=== PATIENT | female | born 1935 | race Caucasian/White ===

== ENCOUNTER → 2016-08-28 | Outpatient (CLI) | payer OTHER ==
--- NOTE | 2016-08-29 10:09 | MAM ---
EXAM DESCRIPTION: MAMMO BREAST SCREENING BILATERAL CAD, images were reviewed with CAD technology, R2 computer-aided detection. CLINICAL HISTORY: [facility]. COMPARISON: 2014. FINDINGS: Routine views are obtained. Scattered glandular pattern with stable distribution. No dominant mass, architectural distortion or clustered microcalcification. IMPRESSION: Benign exam. BIRAD CATEGORY: 2 BENIGN RECOMMENDATIONS: FOLLOW-UP: Routine screening mammogram in one year. According to the [employer], yearly mammograms are recommended starting at age 40 and continuing as long as a woman is in good health. Any breast change noted on a breast self-exam should be reported promptly to the patient's healthcare provider. Breast MRI is recommended for women with an approximately 20-25% or greater lifetime risk of breast cancer, including women with a strong family history of breast or ovarian cancer and women who have been treated for Hodgkin's disease. Electronically signed by: Anuradha Ellis 08/29/2016 10:07
== END ==
LOC: MAMMO 14:35
PROVIDERS: ATTEND Family Medicine
DX: Z12.31 Encounter for screening mammogram for malignant neoplasm of breast (principal)

== ENCOUNTER → 2016-09-28 | Outpatient (CLI) | payer OTHER | LOC: RESP 12:40 | PROVIDERS: ATTEND Physician Assistant | DX: R00.1 Bradycardia, unspecified (principal) ==

== ENCOUNTER → 2017-05-16 | Outpatient (CLI) | payer OTHER | END | disposition home or self-care (01) | LOC: GMAH 10:15 | PROVIDERS: ATTEND Family Medicine | DX: E03.9 Hypothyroidism, unspecified (principal); E78.2 Mixed hyperlipidemia ==

== ENCOUNTER → 2017-08-30 | Outpatient (CLI) | payer OTHER ==
--- NOTE | 2017-09-07 08:55 | MAM ---
EXAM DESCRIPTION: 3D Screening BILATERAL : Digital Mammography. CLINICAL HISTORY: 82 years Female SCREENING . Bilateral breast reduction. Sister with breast cancer. Postmenopausal. Taking HRT 5 or more years ago. COMPARISON: 2-D digital screening bilateral studies 08/28/2016 and 08/26/2015.. Report from prior examination also reviewed. TECHNIQUE: Bilateral CC and MLO projection full-field images, 3-D tomosynthesis digital mammographic technique. Also bilateral synthesized CC/ MLO full-field images. CAD not utilized. Technique Limited due to positioning: Patient unable to stand. FINDINGS: The breast parenchymal density pattern is: Almost entirely fatty. No skin thickening or nipple retraction bilateral axillary lymph nodes. Bilateral vascular calcifications. Bilateral solitary microcalcifications. No focal, stellate mass or density, focal asymmetry , and no suspicious microcalcifications bilaterally. Stable mammograms compared to prior study, taking into account differences in mammographic technique IMPRESSION: BI-RADS CATEGORY: 2 - BENIGN FINDINGS. FOLLOW UP: Routine digital bilateral screening, one year interval from August 2017. Written communication explaining the IMPRESSION and follow-up, will be mailed to the patient and referring health care provider. According to the [employer], yearly mammograms are recommended starting at age 40 and continuing as long as a woman is in good health. Any breast change noted on a breast self-exam should be reported promptly to the patient's healthcare provider. Breast MRI is recommended for women with an approximately 20-25% or greater lifetime risk of breast cancer, including women with a strong family history of breast or ovarian cancer and women who have been treated for Hodgkin's disease. A negative mammographic report should not delay tissue diagnosis in patients with significant clinical history or physical findings. Extremely dense breast tissue limits the sensitivity of digital mammography. Electronically signed by: Edmundo Crystal MD 09/07/2017 8:54 AM TOOTH CLERK
== END ==
LOC: MAMMO 15:23
PROVIDERS: ATTEND Family Medicine
DX: Z12.31 Encounter for screening mammogram for malignant neoplasm of breast (principal)

== ENCOUNTER → 2018-06-06 | Outpatient (CLI) | payer OTHER | LOC: GMAH 10:46 | PROVIDERS: ATTEND Family Medicine | DX: I10 Essential (primary) hypertension (principal); E78.2 Mixed hyperlipidemia ==

== ENCOUNTER → 2019-03-11 | Outpatient (CLI) | payer OTHER | LOC: GMA MATASK 10:33 | PROVIDERS: ATTEND Family Medicine | DX: E03.9 Hypothyroidism, unspecified (principal); I10 Essential (primary) hypertension ==

== ENCOUNTER → 2020-01-13 | Outpatient (CLI) | payer OTHER | LOC: GMA MATASK 10:27 | PROVIDERS: ATTEND Family Medicine | DX: E03.9 Hypothyroidism, unspecified (principal); I10 Essential (primary) hypertension; E11.9 Type 2 diabetes mellitus without complications ==

== ENCOUNTER → 2020-05-18 | Outpatient (CLI) | payer OTHER | LOC: GMA MATASK 14:35 | PROVIDERS: ATTEND Family Medicine | DX: E03.9 Hypothyroidism, unspecified (principal); E11.9 Type 2 diabetes mellitus without complications ==

== ENCOUNTER 2020-08-04 11:33 | Inpatient (IN) | payer MEDICARE, OTHER ==
[2020-08-04] MEDS ORDERED: SOD POLYSTYRENE SULFONATE 15 GM/60 ML BTTL PO ONE (12:34)
[2020-08-04] MEDS ORDERED: SODIUM CHLORIDE 0.9% 1000ML 1,000 ML IVS ONE ×2 (12:34→13:45)
--- NOTE | 2020-08-04 13:12 | RAD ---
EXAM DESCRIPTION: Abdomen series, 3 radiographs CLINICAL HISTORY: nausea, cough, weak FINDINGS/ IMPRESSION: Prior cardiac surgery. Normal heart size. Atherosclerotic aorta. No edema, infiltrate or effusion. No pneumothorax. Normal bowel gas pattern. No evidence of mechanical bowel obstruction. 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 Lumbar spine fusion surgery Electronically signed by: Nelson Vizcaino MD 08/04/2020 1:10 PM HEALTH DIRECTOR
--- NOTE | 2020-08-04 13:18 | CT ---
EXAM DESCRIPTION: CT abdomen and pelvis without contrast CLINICAL HISTORY: Acute renal failure. Abdomen pain. COMPARISON: None Available. TECHNIQUE: Spiral CT with multiplanar reformatted images. This exam was performed according to our departmental dose-optimization program, which includes automated exposure control, adjustment of the mA and/or kV according to patient size and/or use of iterative reconstruction technique. FINDINGS: No hydronephrosis, nephrolithiasis or renal mass lesion. Kidneys are normal in size. Mild perinephric soft tissue density stranding which can be seen with renal insufficiency. No diagnostic abnormality of the ureters or bladder Normal appearance of the uterus. 3.9 cm well-circumscribed right ovarian cyst. No diagnostic left ovarian mass lesion. No adenopathy or free fluid in the pelvis Colonic diverticulosis, primarily sigmoid. No diverticulitis. Mural fat in the cecum and ascending colon likely sequela of remote inflammation. No acute wall thickening/inflammation. Terminal ileum and appendix are normal. No mass lesion or inflammatory process of the small intestine. Normal appearance of the stomach. Thickened distal esophagus over a short segment possibly esophagitis. Visualized lung bases are clear. Heart size is normal Atherosclerotic aorta without aneurysm. No abdominal visceral mass lesion to suggest neoplasm. Normal appearance of the gallbladder. No biliary or pancreatic duct dilation Severe osteoporosis arthritis bilateral hips right greater than left. Lumbar spine fusion surgery IMPRESSION: No acute abnormality of the kidneys ureters or bladder Right ovarian cystic lesion 3.9 cm. Recommend ultrasound follow-up/characterization Colonic diverticulosis without evidence of diverticulitis Fat within the wall of the cecum/ascending colon likely remote postinflammatory. No diagnostic acute inflammation Electronically signed by: Nelson Vizcaino MD 08/04/2020 1:17 PM BOX CAR BRACER
--- NOTE | 2020-08-04 13:49 | ED.PDOC ---
History of Present Illness - General Chief Complaint: General Stated Complaint: weakness,dry mouth,sore throat,cough Time Seen by Provider: 08/04/20 11:36 Source: patient Exam Limitations: no limitations - History of Present Illness Initial Comments: The patient is an 85-year-old female presented to the emergency room secondary to 1 to 2 weeks of symptoms of generalized fatigue and generalized weakness. She has had a mild runny nose. She has had a mild cough. She reports significant dry mouth which has been giving her a difficult time with swallowing. She is able to swallow liquids without any difficulty. Mild generalized unsteadiness of gait. No syncope or near syncope. No significant falls. She has had some mild diffuse low back discomfort. No fevers. No vomiting. Questionable mild nausea. Poor appetite. Mild bladder irritability but she does take oxybutynin. Timing/Duration: 1 week, constant, getting worse Severity: moderate Improving Factors: nothing Worsening Factors: nothing Associated Symptoms: loss of appetite, malaise, nausea/vomiting, weakness Allergies/Adverse Reactions: Allergies Iodine Allergy (Unknown, Verified 08/04/20 11:57) Home Medications: Ambulatory Orders Aspirin [Aspirin 81 Low Dose] 81 mg PO DAILY 08/04/20 Atorvastatin Calcium [Lipitor] 20 mg PO DAILY 08/04/20 B-Complex W/ Folic Acid [Super B Complex Maxi] 1 tab PO DAILY 08/04/20 Benazepril & Hydrochlorothiazi [Benazepril HCl/Hydrochlor 10-12.5 mg] 1 tab PO DAILY 08/04/20 Celecoxib 200 mg PO DAILY 08/04/20 Cholecalciferol [D3 High Potency] 5,000 unit PO DAILY 08/04/20 Donepezil Hydrochloride [Donepezil HCl] 10 mg PO DAILY 08/04/20 Febuxostat 40 mg PO DAILY 08/04/20 Furosemide Tab [Lasix Tab] 40 mg PO DAILY 08/04/20 Ibandronate Sodium 150 mg PO MONTHLY 08/04/20 Lansoprazole [Prevacid] 30 mg PO DAILY 08/04/20 Levothyroxine Sodium [Synthroid] 0.088 mg PO 0700 08/04/20 Meloxicam 7.5 mg PO DAILY 08/04/20 Multiple Vitamins W/ Minerals [Ocuvite Eye + Multi] 1 tab PO DAILY 08/04/20 Oxybutynin Chloride 5 mg PO BID 08/04/20 Potassium Chloride [Potassium Chloride ER] 10 meq PO DAILY 08/04/20 Review of Systems - Review of Systems Constitutional: States: malaise, weakness - Generalized EENTM: States: nose congestion Respiratory: States: cough - Mild Cardiology: States: no symptoms reported Gastrointestinal/Abdominal: States: constipation, nausea Genitourinary: States: see HPI Musculoskeletal: States: back pain Skin: States: no symptoms reported Neurological: States: no symptoms reported Endocrine: States: increased thirst All other Systems: No Change from Baseline Past Medical History (General) - Patient Medical History Hx Stroke: No Hx Asthma: Yes Hx Cardiac Disorders: Yes Hx Congestive Heart Failure: No Hx Diabetes: No Hx Gastroesophageal Reflux: Yes Surgical History: coronary bypass surgery - Vaccination History Hx Influenza Vaccination: Yes Hx Pneumococcal Vaccination: Yes - Social History Hx Tobacco Use: No Family Medical History - Family History Mother Family History: Unknown Living Status: Unknown Physical Exam - Physical Exam General Appearance: Alert, No apparent distress Eye Exam: bilateral normal Ears, Nose, Throat: hearing grossly normal, normal pharynx - Oropharynx is fairly dry. Neck: full range of motion, supple Respiratory: lungs clear, normal breath sounds, no respiratory distress, no accessory muscle use Cardiovascular/Chest: normal peripheral pulses, regular rate, rhythm, no edema Peripheral Pulses: radial,right: 2+, radial,left: 2+ Gastrointestinal/Abdominal: non tender, soft Rectal Exam: deferred Back Exam: no CVA tenderness, no vertebral tenderness Extremity: non-tender, normal inspection, no pedal edema, normal capillary refill Neurologic: telephone order dispatcher II-XII nml as tested, alert, normal mood/affect, oriented x 3 Skin Exam: normal color Comments: Vital Signs - 24 hr 08/04/20 08/04/20 08/04/20 11:58 12:06 12:35 Temperature 98.1 F Pulse Rate [ 70 73 Left Brachial] Respiratory 18 18 18 Rate Blood Pressure 129/58 158/45 [Left Arm] O2 Sat by Pulse 97 98 Oximetry 08/04/20 13:00 Temperature Pulse Rate [ 56 L Left Brachial] Respiratory 18 Rate Blood Pressure 139/42 [Left Arm] O2 Sat by Pulse 98 Oximetry Progress - Progress Progress: 08/04/20 13:51 The patient is a 85-year-old female presented emergency room secondary to a vague constellation of symptoms. This appears to be due to acute renal failure that is most likely due to dehydration, prerenal azotemia. The patient does take several diuretics. Additionally likely complicating the issue, the patient has been taking increasing doses of NSAIDs for the month or so prior. The patient's oxybutynin may have also been contributing to some extent however the bladder was decompressed after voiding here today. It may still need to be avoided in the short-term. The patient has received a liter of IV fluids as well as a one-time oral dose of Kayexalate for moderate hyperkalemia at 6.1. I do expect the potassium level to fall simply with rehydration. The patient does apparently have a history of congestive heart failure so we will have to go fairly slow with the rehydration process. She is going to be placed on 150 cc an hour of normal saline for the next liter. She will need reassessing after that. Vital signs are stable and the patient is alert and oriented x4. The patient will need to be on telemetry monitoring for now. The patient thinks she may have some history of some mild kidney problems in the past but is not certain. We do not have a previous creatinine to compare to. She has tested negative for coronavirus. Imaging and lab work are otherwise reassuring. Admit for continued care. armand smith [id number] - Results/Orders Results/Orders: Acute abdominal series shows chronic changes related to surgeries. CT scan of the abdomen pelvis without contrast shows no obvious acute renal pathology. She has a 4 cm ovarian cyst. Chronic changes otherwise. See report for details. Rapid Covid is negative. EKG shows sinus bradycardia at 54 bpm with a mild first-degree AV block. Normal axis. Normal R wave progression. Normal QT interval. No ST segment or T wave changes indicative of acute ischemia. Laboratory Tests 08/04/20 08/04/20 08/04/20 12:01 12:01 12:01 WBC 6.2 RBC 3.62 L Hgb 11.1 L Hct 34.3 L MCV 94.7 MCH 30.5 MCHC 32.2 L RDW 13.8 Plt Count 193 MPV 10.6 H Absolute Neuts (auto) 3.70 Absolute Lymphs (auto) 1.70 Absolute Monos (auto) 0.40 Absolute Eos (auto) 0.30 Absolute Basos (auto) 0.10 Neutrophils % 60.4 Lymphocytes % 27.2 Monocytes % 6.8 Eosinophils % 4.2 Basophils % 1.4 Sodium 132 L Potassium 6.1 H Chloride 103 Carbon Dioxide 15 L Anion Gap 20.1 H BUN 111 H* Creatinine 8.48 H* BUN/Creatinine Ratio 13.1 Random Glucose 126 H Serum Osmolality Not Reportable Calcium 9.3 Magnesium 2.1 Total Bilirubin 0.6 AST 16 ALT 12 Alkaline Phosphatase 43 Creatine Kinase 80 CK-MB (CK-2) 3.2 CK-MB (CK-2) % Not Reportable Troponin I < 0.02 B-Natriuretic Peptide 215.0 H* Serum Total Protein 6.9 Albumin 4.2 Globulin 2.7 Albumin/Globulin Ratio 1.6 Amylase 70 Lipase 72 H TSH 2.32 Free T4 0.83 Urine Color Urine Appearance Urine pH Ur Specific [place] Urine Protein Urine Glucose (UA) Urine Ketones Urine Blood Urine Nitrite Urine Bilirubin Urine Urobilinogen Ur Leukocyte Esterase Urine RBC Urine WBC Ur Epithelial Cells Amorphous Sediment Urine Bacteria 08/04/20 12:30 WBC RBC Hgb Hct MCV MCH MCHC RDW Plt Count MPV Absolute Neuts (auto) Absolute Lymphs (auto) Absolute Monos (auto) Absolute Eos (auto) Absolute Basos (auto) Neutrophils % Lymphocytes % Monocytes % Eosinophils % Basophils % Sodium Potassium Chloride Carbon Dioxide Anion Gap BUN Creatinine BUN/Creatinine Ratio Random Glucose Serum Osmolality Calcium Magnesium Total Bilirubin AST ALT Alkaline Phosphatase Creatine Kinase CK-MB (CK-2) CK-MB (CK-2) % Troponin I B-Natriuretic Peptide Serum Total Protein Albumin Globulin Albumin/Globulin Ratio Amylase Lipase TSH Free T4 Urine Color Yellow Urine Appearance Cloudy Urine pH 5.0 Ur Specific [place] 1.020 Urine Protein Negative Urine Glucose (UA) Negative Urine Ketones Negative Urine Blood Negative Urine Nitrite Negative Urine Bilirubin Negative Urine Urobilinogen 0.2 Ur Leukocyte Esterase Negative Urine RBC 0-1 Urine WBC 3-5 H Ur Epithelial Cells 10-20 Amorphous Sediment 2+ Urine Bacteria 1+ Departure - Departure Clinical Impression: Hyperkalemia Acute renal failure Qualifiers: Acute renal failure type: unspecified Qualified Code(s): N17.9 - Acute kidney failure, unspecified Disposition: Admit Patient Departure Forms: ED Discharge - Pt. Copy, Patient Portal Self Enrollment Referrals: Rosales Woodward MD [Primary Care Provider] - 1-2 Weeks Home Medications: Ambulatory Orders Aspirin [Aspirin 81 Low Dose] 81 mg PO DAILY 08/04/20 Atorvastatin Calcium [Lipitor] 20 mg PO DAILY 08/04/20 B-Complex W/ Folic Acid [Super B Complex Maxi] 1 tab PO DAILY 08/04/20 Benazepril & Hydrochlorothiazi [Benazepril HCl/Hydrochlor 10-12.5 mg] 1 tab PO DAILY 08/04/20 Celecoxib 200 mg PO DAILY 08/04/20 Cholecalciferol [D3 High Potency] 5,000 unit PO DAILY 08/04/20 Donepezil Hydrochloride [Donepezil HCl] 10 mg PO DAILY 08/04/20 Febuxostat 40 mg PO DAILY 08/04/20 Furosemide Tab [Lasix Tab] 40 mg PO DAILY 08/04/20 Ibandronate Sodium 150 mg PO MONTHLY 08/04/20 Lansoprazole [Prevacid] 30 mg PO DAILY 08/04/20 Levothyroxine Sodium [Synthroid] 0.088 mg PO 0700 08/04/20 Meloxicam 7.5 mg PO DAILY 08/04/20 Multiple Vitamins W/ Minerals [Ocuvite Eye + Multi] 1 tab PO DAILY 08/04/20 Oxybutynin Chloride 5 mg PO BID 08/04/20 Potassium Chloride [Potassium Chloride ER] 10 meq PO DAILY 08/04/20 Decision To Admit - Decistion To Admit Decision to Admit Reason: Medical Nature Decision to Admit Date: 08/04/20 Decision to Admit Time: 13:54
--- NOTE | 2020-08-04 14:26 | HP ---
SUPERVISING PHYSICIAN: Adalid Swann MD CHIEF COMPLAINT: Weakness with dry mouth. HISTORY OF PRESENT ILLNESS: This is an 85-year-old female patient who came to the Emergency Room after complaining of 2 weeks of generalized fatigue and weakness. She had a significantly dry mouth and has had difficulty swallowing. She was able to swallow liquids, but she was somewhat unsteady on her gait. She does have a significant history of osteoarthritis and takes multiple NSAIDs. She also has gout. She does take 2 diuretics, but there is no note of any congestive heart failure on her chart. In the Emergency Room, her vital signs were stable with temperature 98.1, heart rate 70, blood pressure 129/68, respiratory rate 18, O2 saturation 97% on room air. Labs showed CBC that was unremarkable. Sodium was low at 132, potassium 6.1, chloride 103, carbon dioxide 15, anion gap 20.1, BUN 111, creatinine 8.48, glucose 126. Troponin less than 0.02. BNP was 215. Lipase 72, TSH 2.32. She was given fluids in the ER as well as some Kayexalate and was admitted to the hospital. PAST MEDICAL HISTORY: 1. Diabetes mellitus, type 2, diet controlled. 2. Hypertension. 3. Gout. 4. Hypothyroidism. 5. Osteoarthritis. PAST SURGICAL HISTORY: 1. Valve replacement with CABG. 2. Spinal surgery. OUTPATIENT MEDICATIONS: Per the EMR and awaiting verification. ALLERGIES: IODINE. FAMILY HISTORY: Positive for coronary artery disease. SOCIAL HISTORY: She lives in [place]. There is no history of tobacco, ETOH or illicit drug use. REVIEW OF SYSTEMS: GENERAL: Positive for fatigue and weakness. Negative for fever or weight changes. HEENT: Positive for runny nose and dry mouth. Negative for ear pain, vision changes or sore throat. RESPIRATORY: Positive for cough. Negative for wheezing or shortness of breath. CARDIAC: Negative for chest pain, palpitations or tachycardia. GASTROINTESTINAL: Positive for constipation and nausea. Negative for vomiting or diarrhea. GENITOURINARY: Negative for hematuria, dysuria or polyuria. MUSCULOSKELETAL: Positive for back pain and arthralgias. SKIN: Negative for lesions or rashes. NEUROLOGIC: Positive for weakness. Negative for headaches seizures. PHYSICAL EXAMINATION: VITAL SIGNS: Temperature 97.1, heart rate 67, blood pressure 135/64, respiratory rate 18, O2 saturation 98% on room air. GENERAL: This is an 85-year-old female patient who is lying in her hospital bed. She is in no acute distress. HEENT: Normocephalic, atraumatic. Pupils are equal and reactive. Oropharynx is dry. NECK: Supple. RESPIRATORY: Essentially clear to auscultation bilaterally. CARDIOVASCULAR: Regular rate and rhythm. GASTROINTESTINAL: Abdomen is soft, nondistended, nontender. Bowel sounds are positive. EXTREMITIES: No cyanosis, clubbing or edema. NEUROLOGIC: Awake, alert and oriented times three. Cranial nerves II-XII are grossly intact as tested. LABORATORY: Labs are as per history of present illness. MICROBIOLOGY: COVID test was negative. RADIOLOGY: Abdominal/pelvis CT shows 1) No acute abnormality of kidneys, ureters or bladder. 2) Right ovarian cyst lesion 3.9 cm, recommend ultrasound. 3) Colonic diverticulosis without evidence of diverticula. 4) Fat within the wall of the cecum, ascending colon, likely remote and post inflammatory. No diagnostic acute inflammation. Abdomen x-rays shows prior cardiac surgery. No edema, infiltrate or effusion. No pneumothorax. Normal bowel gas pattern. No evidence of mechanical bowel obstruction. Severe arthrosis of bilateral hips, right greater than left. Lumbar spine fusion surgery. IMPRESSION: 1. Acute on chronic renal failure. Her admitting creatinine was 8.48. Her baseline creatinine is about 1.4. 2. Severe dehydration exacerbating #1. She is on 2 diuretics. 3. Hyperkalemia. 4. Hypertension. 5. Gout. 6. Osteoarthritis. 7. Diabetes mellitus, type 2, diet controlled. 8. Hypothyroidism. PLAN: We will admit the patient to the hospital. I will give her bicarb drip and talk to Dr. Carter in the morning. I will recheck her electrolytes later tonight as well as in the morning. I will give her heparin for DVT prophylaxis due to her renal function. We will hold her NSAIDs and most likely she will have to have another pain medicine for her osteoarthritis. I will also hold her diuretics for now. I have ordered an echocardiogram as she did have an elevated BNP and there is no record of congestive heart failure. I may also order a sonogram of the cyst on her ovary tomorrow or the next day or she can followup with her primary care physician. We will monitor and treat as needed. #[id number] [facility]
[2020-08-04] MEDS ORDERED: ONDANSETRON INJ 4 MG/2 ML VIAL IV PRN (17:20)
[2020-08-04] MEDS ORDERED: PROMETHAZINE HCL INJ 25 MG/ML VIAL IM PRN (17:20)
[2020-08-04] MEDS ORDERED: SODIUM CHLORIDE 0.9% (FLUSH) 10 ML SYG IV PRN (19:00)
[2020-08-04] MEDS ORDERED: SODIUM BICARBONATE VIAL 50 MEQ/50 ML VIAL ONE (19:30)
[2020-08-04] MEDS ORDERED: DONEPEZIL HCL 5 MG TAB ONE (19:30)
[2020-08-04] MEDS ORDERED: DEXTROSE 5% 1000ML 1,000 ML IVS ONE (19:31)
[2020-08-04] MEDS: IV SET AND CAP CHANGE INJ INJ SCH (19:47)
[2020-08-04] MEDS: SODIUM BICARBONATE VIAL 75 MEQ in DEXTROSE 5% 1000ML 1,000 ML IVS PRN (19:47)
[2020-08-04] MEDS: HEPARIN SODIUM (PORCINE) 5,000 U/ML VIAL SUBCU SCH (20:35)
[2020-08-04] MEDS: ATORVASTATIN 20 MG TAB PO SCH (20:35)
[2020-08-04] MEDS: SODIUM CHLORIDE 0.9% (FLUSH) 10 ML SYG IV SCH (20:36)
[2020-08-04] MEDS ORDERED: NON-FORMULARY MEDICATION 1 EA MIS (Donepezil Hydrochloride [Donepezil Hcl] 10 MG) PO SCH (21:00)
[2020-08-05] MEDS ORDERED: SODIUM BICARBONATE VIAL 50 MEQ/50 ML VIAL ONE (05:52)
[2020-08-05] MEDS ORDERED: DEXTROSE 5% 1000ML 1,000 ML IVS ONE (05:52)
[2020-08-05] MEDS: SODIUM BICARBONATE VIAL 75 MEQ in DEXTROSE 5% 1000ML 1,000 ML IVS PRN ×2 (06:00→17:18)
[2020-08-05] MEDS: LEVOTHYROXINE SODIUM 0.088 MG TAB PO SCH (06:01)
[2020-08-05] MEDS: PANTOPRAZOLE SODIUM IV 40 MG VIAL IV SCH (06:01)
[2020-08-05] MEDS ORDERED: FOLIC ACID 1 MG TAB ONE (08:42)
[2020-08-05] MEDS ORDERED: traMADol HCL 50 MG TAB PO PRN (09:19)
[2020-08-05] MEDS: HEPARIN SODIUM (PORCINE) 5,000 U/ML VIAL SUBCU SCH ×2 (09:59→20:49)
[2020-08-05] MEDS: SODIUM CHLORIDE 0.9% (FLUSH) 10 ML SYG IV SCH ×2 (09:59→21:51)
--- NOTE | 2020-08-05 14:40 | PN ---
SUPERVISING PHYSICIAN: Adalid Swann MD DATE: 08/05/20 SUBJECTIVE: The patient is sitting up in bed. We discussed her progress since she has been admitted. I explained to her that she would have to stop her NSAIDs, but that she had pain medications as needed. She will also need to see Nephrology at discharge. She denies chest pain, nausea or vomiting. OBJECTIVE: VITAL SIGNS: Temperature 98.1, heart rate 81, blood pressure 148/75, respiratory rate 17, O2 saturation 98% on room air. RESPIRATORY: Essentially clear to auscultation bilaterally. CARDIAC: Regular rate and rhythm. NEUROLOGIC: She is awake and alert. LABORATORY: WBCs 6,700, hemoglobin 9.2, hematocrit 28.2. Potassium last night was 5.7 with BUN 105, creatinine 7.8. This morning, her sodium was 134, potassium 4.5, carbon dioxide 20, BUN 101, creatinine 7.65, serum osmolality 302.4, calcium 8.3, phosphorous 5.4, magnesium 2.All other labs and films have been reviewed via the EMR. ECHOCARDIOGRAM: 1. There is mild concentric left ventricle hypertrophy. 2. Left ventricular ejection fraction estimated by 2D at 55-60 percent. 3. Mild left atrial enlargement. 4. The bio prosthetic aortic valve appears to be functioning normally. ASSESSMENT: 1. Acute on chronic renal failure. Her admitting creatinine was 8.48. Her baseline creatinine is about 1.4. 2. Severe dehydration exacerbating #1. She is on 2 diuretics. 3. Hyperkalemia. 4. Hypertension. 5. Gout. 6. Osteoarthritis. 7. Diabetes mellitus, type 2, diet controlled. 8. Hypothyroidism. PLAN: We will continue present supportive care. I spoke with Dr. Carter, special education science teacher, this morning and he said to continue on the bicarb drip and to repeat her labs in the morning. We will need to discontinue her NSAIDs and I have given her some Tylenol with codeine for pain. I discussed her pain medications with her primary care physician, Dr. Woodward, and he agreed with placing her on Tylenol with codeine at this time. She will also need a followup appointment with Dr. Carter after discharge. [id number] [facility]
[2020-08-05] MEDS: ONDANSETRON INJ 4 MG/2 ML VIAL IV PRN (17:24)
[2020-08-05] MEDS ORDERED: DONEPEZIL HCL 5 MG TAB ONE (19:16)
[2020-08-05] MEDS: DONEPEZIL HCL 5 MG TAB PO SCH (20:49)
[2020-08-05] MEDS: ATORVASTATIN 20 MG TAB PO SCH (20:49)
[2020-08-05] MEDS: ACETAMINOPHEN W/COD #3 TAB 1 EA TAB PO PRN (20:49)
[2020-08-06] MEDS: LEVOTHYROXINE SODIUM 0.088 MG TAB PO SCH (05:58)
[2020-08-06] MEDS: PANTOPRAZOLE SODIUM IV 40 MG VIAL IV SCH (05:58)
--- NOTE | 2020-08-06 07:44 | RAD ---
EXAM DESCRIPTION: Chest,2 Views CLINICAL HISTORY: chf COMPARISON: January 13, 2020 FINDINGS: Two-view chest x-ray shows mild enlargement of the cardiac silhouette without pulmonary vascular congestion. Postsurgical changes from cardiac valve replacement. Lungs are normally aerated with chronic increased interstitial markings. No acute infiltrate or consolidation. . Mild blunting of the posterior costophrenic angles. Moderate disc degenerative changes of the spine with bridging marginal endplate osteophytes over multiple level suggesting ankylosing spondylitis versus DISH. IMPRESSION: No radiographic evidence of acute cardiopulmonary disease. Chronic stable blunting of the posterior costophrenic angles could represent small pleural effusions or chronic pleural thickening. Electronically signed by: Hitesh Orosco MD 08/06/2020 7:43 AM AP PROCESSOR
[2020-08-06] MEDS ORDERED: MAGNESIUM SULFATE PREMIX 2GM 2 GM in PREMIX BAG 1 BAG IVPB ONE (07:47)
[2020-08-06] MEDS ORDERED: MAGNESIUM SULFATE PREMIX 2GM 50 ML IVPB ONE (08:48)
[2020-08-06] MEDS: SODIUM CHLORIDE 0.9% (FLUSH) 10 ML SYG IV SCH ×2 (09:15→22:29)
[2020-08-06] MEDS: HEPARIN SODIUM (PORCINE) 5,000 U/ML VIAL SUBCU SCH ×2 (09:35→19:54)
[2020-08-06] MEDS: SODIUM BICARBONATE VIAL 75 MEQ in DEXTROSE 5% 1000ML 1,000 ML IVS PRN ×2 (10:52→19:57)
[2020-08-06] MEDS: ONDANSETRON INJ 4 MG/2 ML VIAL IV PRN ×2 (10:52→19:54)
[2020-08-06] MEDS: FEBUXOSTAT 40 MG PO SCH (11:01)
--- NOTE | 2020-08-06 19:05 | PN ---
SUPERVISING PHYSICIAN: Adalid Swann M.D. DATE: 08/06/20 SUBJECTIVE: The patient is sitting up in bed conversing on the phone. She denies any chest pain, nausea or vomiting. We discussed her continued plan of care and that her kidney function had improved but we with have to continue present care for a day or so. OBJECTIVE: VITAL SIGNS: Temperature 97.8, heart rate 57, blood pressure 131/75, respiratory rate 17, O2 saturation 96% on room air. RESPIRATORY: Essentially clear to auscultation bilaterally. CARDIAC: Regular rate and rhythm. NEUROLOGIC: She is awake, alert and oriented times three. LABORATORY: WBCs are 5,400 with hemoglobin 9.5, hematocrit 28.3. Sodium 134, potassium 4.1, chloride 99, BUN 86, creatinine 5.77, serum osmolality 297.3, phosphorus 5, magnesium 1.7. Chest x-ray shows no radiographic evidence of acute cardiopulmonary disease. Chronic stable blunting of the posterior costophrenic angles could represent small pleural effusion or chronic pleural thickening. All other labs and films have been reviewed via the EMR. ASSESSMENT: 1. Acute on chronic renal failure. Her admitting creatinine was 8.48. Her baseline creatinine is about 1.4. 2. Severe dehydration exacerbating #1. She is on 2 diuretics. 3. Hyperkalemia. 4. Hypertension. 5. Gout. 6. Osteoarthritis. 7. Diabetes mellitus, type 2, diet controlled. 8. Hypothyroidism. PLAN: We will continue present supportive care. She will continue on her Bicarb drip, although I have reduced the rate for now. She has received some magnesium supplementation. I will check her labs in the morning. I may want to add her a small amount of Lasix back tomorrow, but will need to make sure she is stays off her NSAIDs for now. She has agreed to [facility] on discharge. Will monitor closely and follow as needed. #[id number] [facility]
[2020-08-06] MEDS: ATORVASTATIN 20 MG TAB PO SCH (19:53)
[2020-08-06] MEDS: DONEPEZIL HCL 5 MG TAB PO SCH (19:54)
[2020-08-07] MEDS: LEVOTHYROXINE SODIUM 0.088 MG TAB PO SCH (05:35)
[2020-08-07] MEDS: PANTOPRAZOLE SODIUM IV 40 MG VIAL IV SCH (05:35)
[2020-08-07] MEDS ORDERED: FUROSEMIDE 40 MG TAB PO SCH (09:00)
[2020-08-07] MEDS: HEPARIN SODIUM (PORCINE) 5,000 U/ML VIAL SUBCU SCH ×2 (10:19→20:31)
[2020-08-07] MEDS: FEBUXOSTAT 40 MG PO SCH (10:20)
[2020-08-07] MEDS: SODIUM CHLORIDE 0.9% (FLUSH) 10 ML SYG IV SCH ×2 (10:20→20:31)
[2020-08-07] MEDS: SODIUM BICARBONATE VIAL 75 MEQ in DEXTROSE 5% 1000ML 1,000 ML IVS PRN (10:39)
--- NOTE | 2020-08-07 19:25 | PN ---
SUPERVISING PHYSICIAN: Adalid Swann M.D. DATE: 08/07/20 SUBJECTIVE: The patient is sitting up in bed. She is talking to her [id number]. We discussed her plan of care. I asked her about her eating. She said she has not been hungry. I have encouraged her to eat. I discussed with nursing and hopefully her family can bring her something that she will eat, otherwise no complaints of nausea, vomiting or chest pain. OBJECTIVE: VITAL SIGNS: Temperature 97.9, heart rate 56, blood pressure 163/62, respiratory rate 18, O2 saturation 96% on room air. RESPIRATORY: Essentially clear to auscultation bilaterally. CARDIAC: Regular rate and rhythm. NEUROLOGIC: She is awake, alert and oriented times three. LABORATORY: WBCs are 10,200 with hemoglobin 11.4, hematocrit 34.5. Sodium 134, potassium 4.3, chloride 95, BUN 62, creatinine 3.82. All other labs and films have been reviewed via the EMR. ASSESSMENT: 1. Acute on chronic renal failure. Her admitting creatinine was 8.42. Her baseline creatinine is about 1.4. 2. Severe dehydration exacerbating #1. She is on 2 diuretics. 3. Hyperkalemia. 4. Hypertension. 5. Gout. 6. Osteoarthritis. 7. Diabetes mellitus, type 2, diet controlled. 8. Hypothyroidism. PLAN: We will continue present supportive care. Her IV fluids will be discontinued in the morning. I have decreased her rate to 40 mL per hour. I have encouraged her to eat. Nursing will call her family to bring her something that she would like. I have restarted her Lasix at 20 mg daily. I spoke with Dr. Carter several days ago. He recommended that she with ideally have a creatinine that was 2 or less before discharge and he will need to followup with her. He also recommended no NSAIDs until she is evaluated. Lab has been ordered for in the morning. Will follow and treat as needed. [facility][id number] [facility]
[2020-08-07] MEDS: DONEPEZIL HCL 5 MG TAB PO SCH (20:31)
[2020-08-07] MEDS: ATORVASTATIN 20 MG TAB PO SCH (20:31)
[2020-08-07] MEDS: ACETAMINOPHEN W/COD #3 TAB 1 EA TAB PO PRN (20:32)
[2020-08-07] MEDS: IV SET AND CAP CHANGE INJ INJ SCH (21:35)
[2020-08-08] MEDS: PANTOPRAZOLE SODIUM IV 40 MG VIAL IV SCH (05:52)
[2020-08-08] MEDS: LEVOTHYROXINE SODIUM 0.088 MG TAB PO SCH (05:52)
[2020-08-08] MEDS: FEBUXOSTAT 40 MG PO SCH (07:52)
[2020-08-08] MEDS: HEPARIN SODIUM (PORCINE) 5,000 U/ML VIAL SUBCU SCH ×2 (08:07→20:21)
[2020-08-08] MEDS: FUROSEMIDE 40 MG TAB PO SCH (08:29)
[2020-08-08] MEDS: SODIUM CHLORIDE 0.9% (FLUSH) 10 ML SYG IV SCH ×2 (08:40→20:21)
[2020-08-08] MEDS ORDERED: MAGNESIUM SULFATE PREMIX 2GM 2 GM in PREMIX BAG 1 BAG IVPB ONE (10:21)
[2020-08-08] MEDS ORDERED: MAGNESIUM SULFATE PREMIX 2GM 50 ML IVPB ONE (10:24)
--- NOTE | 2020-08-08 17:08 | PN ---
SUPERVISING PHYSICIAN: Adalid Swann M.D. DATE: 08/08/20 SUBJECTIVE: The patient seems to be doing much better since admission. She has still not got any appetite significantly to speak of. She has had no other complaints. No chest pain, nausea or vomiting. No reported diarrhea. OBJECTIVE: VITAL SIGNS: Temperature 97.7, pulse 50, blood pressure 167/72, respirations 18, satting 97% on room air. GENERAL: The patient looks to be resting comfortably. She is very pleasant and does not appear to be in any distress. CHEST: Lung sounds were clear, just slightly diminished. HEART: Regular rate and rhythm. ABDOMEN: Soft, non-tender. Positive bowel sounds. EXTREMITIES: Without edema. NEUROLOGIC: She is alert and oriented times three. LABORATORY: White count 9,200, hemoglobin 11.4, hematocrit 34.9, platelet count 198,000. Differential shows to be without a left shift. Chemistries are showing normal electrolytes. Carbon dioxide was up today to 36 but normal anion gap at 12. BUN 45, creatinine now is down to 2.92 from admission of initially 8.48. Magnesium 1.7. RADIOLOGY: No additional radiographic studies today. ASSESSMENT: 1. Acute on chronic renal failure secondary to NSAID usage. 2. Severe dehydration resulting in prerenal azotemia and exacerbation of #1. 3. Hyperkalemia, resolved, secondary to #1. 4. Hypertension showing to be stable. 5. Gout. 6. Osteoarthritis. 7. Diabetes mellitus, type 2. 8. Hypothyroidism. PLAN: She has been now discontinued on her IV fluids, including her bicarb. I again reinforced that she is not to have any NSAIDs of any form. Will continue to monitor today since she is saline locked and make sure that she does stay stable in regards to creatinine. Hopefully that will continue to trend down. Until that point we can transition to outpatient management and she can followup with Dr. Carter, will continue to monitor and treat as needed. [facility][id number] [facility]
[2020-08-08] MEDS: DONEPEZIL HCL 5 MG TAB PO SCH (20:21)
[2020-08-08] MEDS: ATORVASTATIN 20 MG TAB PO SCH (20:21)
[2020-08-09] MEDS: PANTOPRAZOLE SODIUM IV 40 MG VIAL IV SCH (06:01)
[2020-08-09] MEDS: LEVOTHYROXINE SODIUM 0.088 MG TAB PO SCH (06:03)
[2020-08-09 06:22] VITALS: TEMP 97.9
[2020-08-09] MEDS ORDERED: POTASSIUM CHLORIDE 20 MEQ TAB PO ONE (07:34)
[2020-08-09] MEDS ORDERED: FUROSEMIDE 40 MG TAB ONE (08:07)
[2020-08-09] MEDS: FEBUXOSTAT 40 MG PO SCH (08:24)
[2020-08-09] MEDS: HEPARIN SODIUM (PORCINE) 5,000 U/ML VIAL SUBCU SCH (08:28)
[2020-08-09] MEDS: SODIUM CHLORIDE 0.9% (FLUSH) 10 ML SYG IV SCH (08:29)
[2020-08-09] MEDS: FUROSEMIDE 40 MG TAB PO SCH (08:29)
[2020-08-09 12:15] VITALS: BP 145/60; O2SAT 97
--- NOTE | 2020-08-09 15:23 | DS ---
SUPERVISING PHYSICIAN: Eliza Branch MD ADMISSION DIAGNOSIS: 1. Acute on chronic renal failure. Her admitting creatinine was 8.48. Her baseline creatinine is about 1.4. 2. Severe dehydration exacerbating #1. She is on two diuretics. 3. Hyperkalemia. 4. Hypertension. 5. Gout. 6. Osteoarthritis. 7. Diabetes mellitus, type 2, diet controlled. 8. Hypothyroidism. DISCHARGE DIAGNOSIS: 1. Acute on chronic renal failure secondary to NSAID usage, responding to therapy and returning to baseline levels. 2. Prerenal azotemia secondary to severe dehydration, exacerbating #1 due to Lasix. 3. Hyperkalemia, resolved, secondary to #1. 4. Hypertension, stable. 5. Gout. 6. Osteoarthritis. 7. Diabetes mellitus, type 2. 8. Hypothyroidism. REASON FOR HOSPITALIZATION: This is an 85-year-old female patient who came to the Emergency Room after complaining of 2 weeks of generalized fatigue and weakness. She had a significantly dry mouth and has had difficulty swallowing. She was able to swallow liquids, but she was somewhat unsteady on her gait. She does have a significant history of osteoarthritis and takes multiple NSAIDs. She also has gout. She does take 2 diuretics, but there is no note of any congestive heart failure on her chart. In the Emergency Room, her vital signs were stable with temperature 98.1, heart rate 70, blood pressure 129/68, respiratory rate 18, O2 saturation 97% on room air. Labs showed CBC that was unremarkable. Sodium was low at 132, potassium 6.1, chloride 103, carbon dioxide 15, anion gap 20.1, BUN 111, creatinine 8.48, glucose 126. Troponin less than 0.02. BNP was 215. Lipase 72, TSH 2.32. She was given fluids in the ER as well as some Kayexalate and was admitted to the hospital. LABORATORY: Admitting creatinine was 8.48. Creatinine on discharge is 2.57. Admitting BUN was 111, discharge 38. Sodium normal at discharge as well as potassium at 3.4 compared to admitting potassium of 6.1. Phosphorous normalized at discharge at 3.3. Magnesium normal at 1.9. Calcium 9.2. Liver functions all within normal limits. TSH was normal at 2.32. Amylase and lipase on admission showed slight elevation with lipase 72, normalized prior to discharge. Urinalysis showed 3 to 5 WBCs, 10 to 20 epithelials with 1+ bacteria, 2+ amorphus. MICROBIOLOGY: Swab for COVID was negative. RADIOLOGY: Abdominopelvic CT without contrast per radiologic interpretation showed no acute abnormality of the kidneys, ureters or bladder. There was a right ovarian cystic lesion of 3.9 cm, recommend ultrasound followup. Colonic diverticulosis without any evidence of diverticulitis. Please see that final report for details. Chest x-ray on admission, two-view chest, per radiologic interpretation showed no evidence of acute cardiopulmonary disease. There was note of chronic stable blunting of the posterior costophrenic angles which could represent a small pleural effusion or chronic pleural thickening. EKG, 12 lead on admission showed sinus bradycardia at 54 with first degree AV block. No ST segment or T-wave changes to indicate acute ischemia. HOSPITAL COURSE: Ms. Cuello was admitted for acute renal failure secondary to NSAID usage. She was started on a bicarb infusion and responding well to treatment. Her Lasix was held and she started back on p.o. Lasix half dose at 20 mg 48 hours prior to discharge and was still showing good clinical response to treatment. Creatinine was at acceptable levels clinically at discharge with creatinine at discharge being 2.57. Clinically, she was stable. Vital signs showed she was afebrile at 97.9, pulse 57, blood pressure 145/60, saturation 97%, respirations 18. It was felt she was stable enough to continue with outpatient management. PLAN: Ms. Cuello was discharged on 08/09/20. I did talk with Trace. He is going to see her after discharge. I discussed her RUFINO inhibitor and changed her from combination RUFINO inhibitor hydrochlorothiazide to benazepril 10 mg daily. We halved her dose of Lasix. She is on low-dose potassium. She was given instructions that she is not to take any form of NSAIDs including prescription. She is to see Dr. Carter which will be arranged through Dr. Woodward's office and will have labs repeated on that visit with Dr. Woodward. She is to resume her usual diet, increase her activity as tolerated and take medications as prescribed on discharge. She is to take her home medications with modifications as below. Medications prescribed at time of discharge included: 1. Hold combination benazepril and hydrochlorothiazide and take benazepril 10 mg daily. She was given script, #30 with no refills. 2. Lasix which she is to stop the 40 mg and take 20 mg daily, given script for #30, no refills. 3. She was given Tylenol #3 1 q.4h. as needed for pain for 3 days [address] she sees Dr. Woodward in followup. Again, she not to take any NSAIDs. CONDITION ON DISCHARGE: Stable and improved. DISPOSITION: The patient is discharged home. #[id number] [facility]
== END 2020-08-09 13:30 | disposition home health service (06) | DRG 683 ==
LOC: ER 11:33 → OBSVTOIN 14:25 → MS 14:25
PROVIDERS: ADMIT Nurse Practitioner Acute Care; ATTEND Nurse Practitioner Acute Care
DX: N17.9 Acute kidney failure, unspecified (principal); E87.1 Hypo-osmolality and hyponatremia; N18.9 Chronic kidney disease, unspecified; E86.0 Dehydration; E87.5 Hyperkalemia; I12.9 Hypertensive chronic kidney disease with stage 1 through stage 4 chronic kidney disease, or unspecified chronic kidney disease; M10.9 Gout, unspecified; M19.90 Unspecified osteoarthritis, unspecified site; E11.22 Type 2 diabetes mellitus with diabetic chronic kidney disease; E03.9 Hypothyroidism, unspecified; T39.395A Adverse effect of other nonsteroidal anti-inflammatory drugs [NSAID], initial encounter; Y92.009 Unspecified place in unspecified non-institutional (private) residence as the place of occurrence of the external cause; Z95.2 Presence of prosthetic heart valve; Z95.1 Presence of aortocoronary bypass graft; Z91.048 Other nonmedicinal substance allergy status; Z79.82 Long term (current) use of aspirin; Z79.1 Long term (current) use of non-steroidal anti-inflammatories (NSAID); Z79.899 Other long term (current) drug therapy